=== PATIENT | female | born 1995 | race Caucasian/White ===

== ENCOUNTER 2017-10-20 03:20 | Emergency (ER) | payer OTHER ==
[~2017-10-20] VITALS: Ht 170.2 cm; Wt 84.0 kg
[2017-10-20 03:41] VITALS: BP 115/58; PULSE 86; RESP 16; TEMP 98.6; O2SAT 97
--- NOTE | 2017-10-20 04:59 | PD ---
HPI Chief Complaint: Alcohol/Drug Intoxication Time Seen by Provider: 04:36 Travel History International Travel<30 days: No Contact w/Intl Traveler<30days: No Traveled to known affect area: No History of Present Illness HPI 22-year-old white female presents emergency department under [place] act by PD due to alcohol intoxication. She states that she is going out drinking with friends this evening because it was her birthday. Patient denies any medical complaints. Patient is heavily intoxicated and cannot render any meaningful history. The patient rolls onto her side pulls a blanket up and goes asleep readily. PFSH Past Medical History Bipolar Disorder: Yes Anxiety: Yes Depression: Yes Diabetes: No Patient Takes Glucophage: No Diminished Hearing: No Psychiatric: Yes ("SPLIT PERSONALITY" D/O) Immunizations Current: Yes Tetanus Vaccination: > 5 Years Influenza Vaccination: No ?: Unknown LMP: UNK Past Surgical History Surgical History: No Previous Surgery Social History Alcohol Use: Yes ("WHENEVER I CAN") Tobacco Use: Yes (VAPE) Substance Use: Yes (CANNABIS) Allergies-Medications (Allergen,Severity, Reaction): Coded Allergies: No Known Allergies (Unverified , 10/20/17) Reported Meds & Prescriptions Reported Meds & Active Scripts Active No Active Prescriptions or Reported Medications Review of Systems ROS Limitations: Intoxication Physical Exam Narrative GENERAL: Well-nourished, well-developed patient. Patient is heavily intoxicated and smells of EtOH SKIN: Warm and dry. HEAD: Normocephalic and atraumatic. EYES: No scleral icterus. No injection or drainage. ENT: No nasal drainage noted. Mucous membranes pink. Airway patent. NECK: Supple, trachea midline. Moves head freely without obvious discomfort. CARDIOVASCULAR: Regular rate and rhythm without murmurs, gallops, or rubs. RESPIRATORY: Breath sounds equal bilaterally. No accessory muscle use. GASTROINTESTINAL: Abdomen soft, non-tender, nondistended. EXTREMITIES: No cyanosis or edema. BACK: Nontender without obvious deformity. No CVA tenderness. NEURO: Patient is alert and oriented but somnolent. no sensorimotor deficits. Nonfocal. Slurred speech. PSYCH: No delusions. No auditory or visual hallucinations. Data Data Last Documented VS Vital Signs Date Time Temp Pulse Resp B/P (MAP) Pulse Ox O2 Delivery O2 Flow Rate FiO2 10/20/17 03:41 98.6 86 16 115/58 (77) 97 [facility] Medical Decision Making Medical Screen Exam Complete: Yes Emergency Medical Condition: Yes Medical Record Reviewed: Yes Differential Diagnosis Differential diagnoses: Alcohol intoxication, substance abuse, electrolyte abnormality, malingering Narrative Course The patient is heavily intoxicated. She is here under [place] act. The patient will be allowed to sober up. Once the patient exhibits sobriety patient 's Marchman act will be lifted. This is alcohol intoxication Diagnosis Primary Impression: Alcohol intoxication Patient Instructions: General Instructions Additional Instructions: Rest. Increase fluids. Avoid alcohol. Avoid illegal substances. Follow-up with [facility] for detox. Do not operate a car or any heavy machinery under the influence of alcohol or drugs. Follow-up with a medical doctor this week. Return to the ER for emergencies Med/Other Pt SpecificInfo: No Meds Exist/No RX given Scripts No Active Prescriptions or Reported Meds Disposition: 01 DISCHARGE HOME Condition: Stable Greg Olivier Oct 20, 2017 04:59
[2017-10-20 12:12] VITALS: BP 94/56; PULSE 85; RESP 16; TEMP 98; O2SAT 99
== END 2017-10-20 13:06 | disposition home or self-care (01) ==
LOC: NEPD 03:20
DX: F10.929 Alcohol use, unspecified with intoxication, unspecified (principal); F41.8 Other specified anxiety disorders; F12.90 Cannabis use, unspecified, uncomplicated
CPT/HCPCS: 99281